=== PATIENT | female | born 1990 | race Caucasian/White ===

== ENCOUNTER 2018-03-28 09:00 | Outpatient (CLI) | payer BC, OTHER ==
[~2018-03-28 09:00] MED LIST: Gadobenate Dimeglumine 529 MG/1 ML (20ML VIAL) ONE
--- NOTE | 2018-03-28 12:07 | MRI ---
MRI BRAIN WITH AND WITHOUT CONTRAST: HISTORY: Severe headache two weeks ago and anisocoria with dilatation of the left pupil. TECHNIQUE: Multiplanar, multisequence MR images were obtained of the brain with and without IV contrast. COMPARISON: None. FINDINGS: The brain demonstrates normal signal intensity on all obtained sequences. No restricted diffusion or abnormal enhancement is seen. There is no evidence of hydrocephalus, internal hemorrhoids, or extraaxial fluid collection. The exp ected flow voids are present. The corpus callosum, pituitary, and craniocervical junction are unrema rkable. The calvarium and overlying soft tissues are unremarkable. The visualized paranasal sinuses and mast oid air cells are well aerated. IMPRESSION: No evidence of acute intracranial abnormality. POS: [facility]
== END 2018-03-28 09:01 | disposition home or self-care (01) ==
LOC: SCSMRI 09:00
PROVIDERS: ATTEND Family Medicine
DX: R51 Headache (principal); H57.02 Anisocoria
CPT/HCPCS: 70553; A9579

== ENCOUNTER 2020-03-30 21:58 | Emergency (ER) | payer OTHER ==
[2020-03-30] MEDS ORDERED: Lorazepam 2 MG/ML VIAL ONE (22:34)
== END 2020-03-30 22:54 | disposition home or self-care (01) ==
LOC: ERS 21:58
DX: S61.011A Laceration without foreign body of right thumb without damage to nail, initial encounter (principal); F41.9 Anxiety disorder, unspecified; F32.9 Major depressive disorder, single episode, unspecified; Z79.899 Other long term (current) drug therapy; Z87.442 Personal history of urinary calculi; V43.52XA Car driver injured in collision with other type car in traffic accident, initial encounter
CPT/HCPCS: 12001; 96361; 96374; G0390; J2060